=== PATIENT | female | born 1940 | race Caucasian/White ===

== ENCOUNTER → 2017-01-14 | Outpatient (CLI) | payer MEDICARE, BC ==
[2011-12-14 15:14] VITALS: BP 91/55
[~2017-01-14] MED LIST: CYMBALTA PO; GABAPENTIN600 MG PO; LISINOPRIL/HCTZ1 TA2 PO; METHADONE10 MG PO; NEXIUM PO
== END ==
LOC: MAMMO 13:09
DX: Z12.31 Encounter for screening mammogram for malignant neoplasm of breast (principal)
CPT/HCPCS: G0202

== ENCOUNTER 2017-09-03 08:12 | Emergency (ER) | payer MEDICARE, BC ==
[~2017-09-03] VITALS: Ht 165.1 cm; Wt 61.4 kg
[2017-09-03] MEDS ORDERED: MS CONTIN 115 MG/TAB PO (08:18)
[2017-09-03] MEDS ORDERED: MIRTAZAPINE15 MG PO (08:18)
[2017-09-03] MEDS ORDERED: KLONOPIN 0.5MG0.5 MG PO (08:21)
[2017-09-03] MEDS ORDERED: MELOXICAM15 MG PO (08:21)
[2017-09-03] MEDS ORDERED: SERTRALINE HYD100 MG PO (08:21)
[2017-09-03] MEDS ORDERED: ACETAMINOPHEN-H1 TA2 PO (08:36)
[2017-09-03 08:56] LABS: HEMOGLOBIN 14.9 g/dL (12.5-16.0); MEAN CELL VOLUME 88 fl (78-100); MEAN CORPUSCULAR HEMOGLOBIN 30 pg (27-31); MEAN CORPUSCULAR HGB CONC 34 g/dL (33-37); MEAN PLATELET VOLUME 10.2 fl (7.4-10.4); PLATELET COUNT 243 K/mm3 (130-400); RED BLOOD COUNT 5.02 M/mm3 (4.10-5.30); RED CELL DISTRIBUTION WIDTH 14.3 % (11.5-14.5); WHITE BLOOD COUNT 19.9 K/mm3 (4.8-10.8)
[2017-09-03 09:06] LABS: BAND 4 % (0-10)
[2017-09-03 09:07] LABS: LYMPHOCYTE 3 % (20-51); MONOCYTE 5 % (3-10); NEUTROPHILS 88 % (42-75)
[2017-09-03 09:09] LABS: ALBUMIN 3.8 g/dL (3.5-5.0); BUN/CREATININE RATIO 36.8 (6.0-26.0); CALCIUM 8.5 mg/dL (8.4-10.2); POTASSIUM 3.1 mmol/L (3.6-5.0); TOTAL BILIRUBIN 0.5 mg/dL (0.2-1.3); TOTAL PROTEIN 7.7 g/dL (6.3-8.2)
[2017-09-03 09:32] LABS: URINE APPEARANCE CLOUDY; URINE BILIRUBIN NEGATIVE (NEGATIVE); URINE BLOOD 50 ery/uL (NEGATIVE); URINE COLOR DARK YELLOW; URINE GLUCOSE NEGATIVE (NEGATIVE); URINE KETONE 1+ (NEGATIVE); URINE LEUKOCYTE ESTERASE NEGATIVE (NEGATIVE); URINE MUCUS PRESENT (NOT PRESENT); URINE NITRATE NEGATIVE (NEGATIVE); URINE PROTEIN(semi-quant) 1+ mg/dL (NEGATIVE); URINE UROBILINOGEN NORMAL (NORMAL)
[2017-09-03] MEDS ORDERED: ZOFRAN ODT4 MG PO (12:08)
[2017-09-03] MEDS ORDERED: HYDROCHLOROTHIA1 T15 PO (12:17)
[2017-09-03 12:22] VITALS: BP 159/72
== END 2017-09-03 12:15 | disposition home or self-care (01) ==
LOC: ED 08:12
PROVIDERS: Physician Assistant
DX: K52.9 Noninfective gastroenteritis and colitis, unspecified (principal); I10 Essential (primary) hypertension; Z79.899 Other long term (current) drug therapy; F17.210 Nicotine dependence, cigarettes, uncomplicated; G89.29 Other chronic pain
CPT/HCPCS: J1885; J2270; J2405; J7120

== ENCOUNTER → 2022-01-23 | Outpatient (CLI) | payer MEDICARE, BC ==
[~2022-01-23] MED LIST changes: +ACETAMINOPHEN-H1 TA2 PO; +ASPIRIN 32325 MG/TAB PO; +BISACODYL10 M1 RC; +CALCIUM 600 PLU1 TAB PO; +CLONAZEPAM0.5 M1 PO; +HYDROCHLOROTHIA1 T15 PO; +IBU400 MG PO; +KLONOPIN 0.5MG0.5 MG PO; +LACTULOSE SYRUP1 ML PO; +LIDOCAINE PAIN1 EACH TP; +MELOXICAM15 MG PO; +METOCLOPRAMIDE10 M5 PO; +MIRTAZAPINE15 MG PO; +MS CONTIN 115 MG/TAB PO; +MS CONTIN15 MG PO; +NATURE S BLEND PO; +NEURONTIN300 M1 PO; +NYSTATIN15 G1 TP; +PRILOSEC 20MG20 MG PO; +REMERON15 MG PO; +SERTRALINE HYD100 MG PO; +TEMOVATE15 GM TP; +ZESTRIL40 M1 PO; +ZOFRAN ODT4 MG PO
[2022-01-23 13:56] LABS: BASO # 0.01 K/mm3 (0.02-0.10); EOS # 0.01 K/mm3 (0.04-0.40); EOS % 0.1 % (1.0-5.0); HEMOGLOBIN 10.3 g/dL (12.5-16.0); MEAN CELL VOLUME 79 fl (78-100); MEAN CORPUSCULAR HEMOGLOBIN 26 pg (27-31); MEAN CORPUSCULAR HGB CONC 32 g/dL (33-37); MEAN PLATELET VOLUME 9.8 fl (7.4-10.4); PLATELET COUNT 301 K/mm3 (130-400); RED BLOOD COUNT 4.03 M/mm3 (4.10-5.30); RED CELL DISTRIBUTION WIDTH 17.8 % (11.5-14.5); WHITE BLOOD COUNT 7.2 K/mm3 (4.8-10.8)
[2022-01-23 14:01] LABS: ALBUMIN 3.5 g/dL (3.4-4.8); POTASSIUM 3.5 mmol/L (3.5-5.1)
[2022-01-23 14:02] LABS: CALCIUM 8.8 mg/dL (8.3-10.5)
[2022-01-23 14:04] LABS: TOTAL PROTEIN 6.8 g/dL (6.2-8.1)
[2022-01-23 14:05] LABS: TOTAL BILIRUBIN 0.3 mg/dL (0.2-1.2)
== END ==
LOC: LAB 13:24
PROVIDERS: Family Medicine
DX: D64.9 Anemia, unspecified (principal); E87.1 Hypo-osmolality and hyponatremia; R32 Unspecified urinary incontinence

== ENCOUNTER 2022-01-28 17:19 | Emergency (ER) | payer MEDICARE, BC ==
[~2022-01-28] VITALS: Ht 157.5 cm; Wt 49.5 kg
[2022-01-28] MEDS ORDERED: FUROSEMIDE20 MG PO (17:57)
[2022-01-28] MEDS ORDERED: PREDNISONE10 MG PO (17:59)
[2022-01-28 18:18] LABS: BASO # 0.02 K/mm3 (0.02-0.10); HEMATOCRIT 31.7 % (37.0-47.0); HEMOGLOBIN 9.8 g/dL (12.5-16.0); LYMPH# 1.16 K/mm3 (1.50-4.00); MEAN CELL VOLUME 82 fl (78-100); MEAN CORPUSCULAR HEMOGLOBIN 25 pg (27-31); MEAN CORPUSCULAR HGB CONC 31 g/dL (33-37); MEAN PLATELET VOLUME 9.7 fl (7.4-10.4); MONO # 0.83 K/mm3 (0.20-0.80); NEU # 5.62 K/mm3 (1.40-6.50); PLATELET COUNT 242 K/mm3 (130-400); RED BLOOD COUNT 3.87 M/mm3 (4.10-5.30); RED CELL DISTRIBUTION WIDTH 18.8 % (11.5-14.5); WHITE BLOOD COUNT 7.6 K/mm3 (4.8-10.8)
[2022-01-28 18:31] LABS: POTASSIUM 3.4 mmol/L (3.5-5.1); SODIUM 136 mmol/L (136-145)
[2022-01-28 18:33] LABS: GLUCOSE 103 mg/dL (65-105); TOTAL PROTEIN 5.8 g/dL (6.2-8.1)
[2022-01-28 18:34] LABS: CARBON DIOXIDE 30 mmol/L (23-31)
[2022-01-28 18:35] LABS: TOTAL BILIRUBIN 0.2 mg/dL (0.2-1.2)
[2022-01-28 18:38] LABS: AST-SGOT 20 U/L (5-34)
[2022-01-28 18:39] LABS: MAGNESIUM 1.83 mg/dL (1.60-2.60)
[2022-01-28 18:40] LABS: ALT/SGPT 10 U/L (0-55)
[2022-01-28 18:52] LABS: TROPONIN-I < 0.030 ng/mL (<0.030)
[2022-01-28 20:21] LABS: URINE APPEARANCE CLOUDY; URINE BILIRUBIN NEGATIVE (NEGATIVE); URINE BLOOD 250 ery/uL (NEGATIVE); URINE COLOR YELLOW; URINE GLUCOSE NEGATIVE (NEGATIVE); URINE KETONE NEGATIVE (NEGATIVE); URINE LEUKOCYTE ESTERASE 1+ (NEGATIVE); URINE NITRATE NEGATIVE (NEGATIVE); URINE PROTEIN(semi-quant) 1+ (NEGATIVE); URINE UROBILINOGEN NORMAL (NORMAL)
[2022-01-29 17:50] VITALS: BP 96/72
== END 2022-01-29 18:30 | disposition other institution (70) ==
LOC: ED 17:19
PROVIDERS: Physician Assistant
DX: I48.20 Chronic atrial fibrillation, unspecified (principal); I50.9 Heart failure, unspecified; U07.1 COVID-19; Z73.0 Burn-out
CPT/HCPCS: J1940; J2270; J7030; Q9967

== ENCOUNTER 2022-04-22 23:30 | Emergency (ER) | payer MEDICARE, BC ==
[~2022-04-22] VITALS: Ht 160 cm; Wt 43.3 kg
[~2022-04-22 23:30] MED LIST changes: +AMIODARONE200 MG PO; +DILTIAZEM HCL30 M1 PO; +ELIQUIS5 MG PO; +FUROSEMIDE20 MG PO; +PREDNISONE10 MG PO
[2022-04-22 23:45] VITALS: BP 129/64
[2022-04-22] MEDS ORDERED: JANTOVEN1 MG PO (23:45)
[2022-04-23 00:45] LABS: ALBUMIN 2.1 g/dL (3.4-4.8); POTASSIUM 5.1 mmol/L (3.5-5.1)
[2022-04-23 00:47] LABS: CALCIUM 7.6 mg/dL (8.3-10.5); HEMATOCRIT 35.2 % (37.0-47.0); HEMOGLOBIN 11.2 g/dL (12.5-16.0); MEAN CELL VOLUME 79 fl (78-100); MEAN CORPUSCULAR HEMOGLOBIN 25 pg (27-31); MEAN CORPUSCULAR HGB CONC 32 g/dL (33-37); MEAN PLATELET VOLUME 10.8 fl (7.4-10.4); PLATELET COUNT 166 K/mm3 (130-400); RED BLOOD COUNT 4.46 M/mm3 (4.10-5.30); RED CELL DISTRIBUTION WIDTH 22.4 % (11.5-14.5); WHITE BLOOD COUNT 11.5 K/mm3 (4.8-10.8)
[2022-04-23 00:48] LABS: TOTAL PROTEIN 4.8 g/dL (6.2-8.1)
[2022-04-23 00:50] LABS: TOTAL BILIRUBIN 0.4 mg/dL (0.2-1.2)
[2022-04-23 01:15] LABS: PROTHROMBIN TIME 40.1 SECONDS (9.0-12.0)
[2022-04-23 01:20] LABS: BAND 23 % (0-10)
[2022-04-23 01:21] LABS: LYMPHOCYTE 7 % (20-51); MONOCYTE 10 % (3-10); NEUTROPHILS 60 % (42-75)
[2022-04-23 01:22] LABS: ACANTHROCYTES 2+; OVALOCYTES 1+; TARGET CELLS 2+
[2022-04-23] MEDS ORDERED: WARFARIN SOD2 MG PO (10:31)
== END 2022-04-23 03:48 | disposition other institution (70) ==
LOC: ED 23:30
PROVIDERS: Physician Assistant
DX: I50.9 Heart failure, unspecified (principal); N17.9 Acute kidney failure, unspecified; I48.91 Unspecified atrial fibrillation; E87.1 Hypo-osmolality and hyponatremia; R88.8 Abnormal findings in other body fluids and substances; Z79.899 Other long term (current) drug therapy; Z95.0 Presence of cardiac pacemaker
CPT/HCPCS: J1940